=== PATIENT | female | born 2000 | race Caucasian/White ===

== ENCOUNTER 2021-01-03 22:26 | Emergency (ER) | payer OTHER ==
[~2021-01-03 22:26] MED LIST: FLINTSTONES GU1 EACH PO
[2021-01-04 00:33] LABS: HEMOGLOBIN 12.5 gm/dl (12.3-15.3); RED BLOOD COUNT 4.23 M/UL (4.00-5.10); WHITE BLOOD COUNT 15.5 K/UL (4.5-11.0)
[2021-01-04 00:53] LABS: BUN/CREATININE RATIO 14 (0-10)
[2021-01-04] MEDS ORDERED: PROTONIX 40 MG40 M1 PO (02:05)
[2021-01-04] MEDS ORDERED: CEPHALEXIN500 M1 PO (02:05)
[2021-01-04] MEDS ORDERED: ONDANSETRON ODT4 MG SL (02:05)
== END 2021-01-04 02:20 | disposition home or self-care (01) ==
LOC: ER1 22:26
PROVIDERS: Physician Assistant
DX: N39.0 Urinary tract infection, site not specified (principal); K21.9 Gastro-esophageal reflux disease without esophagitis; Z88.0 Allergy status to penicillin; R10.811 Right upper quadrant abdominal tenderness; R10.812 Left upper quadrant abdominal tenderness; R10.816 Epigastric abdominal tenderness
CPT/HCPCS: 80053; 81001; 83690; 85025; 99284

== ENCOUNTER 2021-05-09 16:55 | Inpatient (IN) | payer OTHER ==
[~2021-05-09] VITALS: Ht 160 cm; Wt 101.2 kg
[~2021-05-09 16:55] MED LIST changes: +CEPHALEXIN500 M1 PO; +ONDANSETRON ODT4 MG SL; +PROTONIX 40 MG40 M1 PO
[2021-05-09 17:49] LABS: HEMOGLOBIN 10.4 gm/dl (12.3-15.3); RED BLOOD COUNT 3.71 M/UL (4.00-5.10)
[2021-05-09] MEDS ORDERED: CARAFATE1 GM PO ×2 (18:12)
[2021-05-09] MEDS ORDERED: FERROUS SULFAT325 M2 PO (18:13)
[2021-05-09] MEDS ORDERED: OMEPRAZOLE40 MG PO (18:14)
[2021-05-09] MEDS ORDERED: PEPCID40 MG PO (18:14)
[2021-05-09] MEDS ORDERED: INTEGRA CAPSUL1 EACH PO (18:15)
[2021-05-10] MEDS ORDERED: HYDROCODON-ACE1 EAC4 PO (14:39)
[2021-05-10] MEDS ORDERED: IBUPROFEN800 MG PO (14:39)
[2021-05-10] MEDS ORDERED: COLACE 100MG C100 MG PO (14:39)
[2021-05-10 20:03] LABS: HEMOGLOBIN 10.4 gm/dl (12.3-15.3)
== END 2021-05-11 00:26 | disposition home or self-care (01) | DRG 807 ==
LOC: GENOP 16:55 → OB 17:28
PROVIDERS: Obstetrics & Gynecology; ADMIT Obstetrics & Gynecology
PROC: 10E0XZZ Delivery of Products of Conception, External Approach (ICD-10-PCS; principal; 2021-05-10)
PROC: 10H07YZ Insertion of Other Device into Products of Conception, Via Natural or Artificial Opening (ICD-10-PCS; 2021-05-10)
PROC: 3E0R3NZ Introduction of Analgesics, Hypnotics, Sedatives into Spinal Canal, Percutaneous Approach (ICD-10-PCS; 2021-05-10)
PROC: 10907ZC Drainage of Amniotic Fluid, Therapeutic from Products of Conception, Via Natural or Artificial Opening (ICD-10-PCS; 2021-05-10)
DX: O13.3 Gestational [pregnancy-induced] hypertension without significant proteinuria, third trimester (principal); Z37.0 Single live birth; O99.213 Obesity complicating pregnancy, third trimester; E66.9 Obesity, unspecified; O69.81X0 Labor and delivery complicated by cord around neck, without compression, not applicable or unspecified; Z3A.37 37 weeks gestation of pregnancy
CPT/HCPCS: 81001; 82800; 85014; 85018; 85025; 85461; 86850; 86900; 86901; 86920; J2590; J2795; J7120

== ENCOUNTER 2021-07-06 23:23 | Emergency (ER) | payer OTHER ==
[~2021-07-06 23:23] MED LIST changes: +CARAFATE1 GM PO; +COLACE 100MG C100 MG PO; +FERROUS SULFAT325 M2 PO; +HYDROCODON-ACE1 EAC4 PO; +IBUPROFEN800 MG PO; +INTEGRA CAPSUL1 EACH PO; +OMEPRAZOLE40 MG PO; +PEPCID40 MG PO
[2021-07-07 02:39] LABS: HEMOGLOBIN 12.4 gm/dl (12.3-15.3); RED BLOOD COUNT 4.63 M/UL (4.00-5.10); WHITE BLOOD COUNT 12.4 K/UL (4.5-11.0)
[2021-07-07 03:07] LABS: BUN/CREATININE RATIO 20 (0-10)
[2021-07-07] MEDS ORDERED: ZOFRAN 4 MG TAB4 MG PO (06:48)
== END 2021-07-07 07:05 | disposition home or self-care (01) ==
LOC: ER1 23:23
PROVIDERS: Physician Assistant
DX: K83.8 Other specified diseases of biliary tract (principal); Z88.0 Allergy status to penicillin
CPT/HCPCS: 80053; 81001; 82150; 83690; 84703; 85025; 96361; 96374; 99284; J2405; Q9967

== ENCOUNTER → 2021-07-09 | Outpatient (CLI) | payer OTHER ==
[~2021-07-09] MED LIST changes: +ZOFRAN 4 MG TAB4 MG PO
== END ==
LOC: KOH-I 09:58
DX: K82.8 Other specified diseases of gallbladder (principal); K83.9 Disease of biliary tract, unspecified; R10.11 Right upper quadrant pain; K80.20 Calculus of gallbladder without cholecystitis without obstruction
CPT/HCPCS: 76705